=== PATIENT | female | born 2000 | race Caucasian/White ===

== ENCOUNTER 2018-06-19 13:16 | Emergency (ER) | payer OTHER ==
[2018-06-19 13:46] VITALS: BP 105/63
[2018-06-19] MEDS ORDERED: Ibuprofen TAB* 600 MG PO ONE (14:39)
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
== END 2018-06-19 15:26 | disposition home or self-care (01) ==
LOC: UCEAST 13:16
DX: S06.0X0A Concussion without loss of consciousness, initial encounter (principal); S46.811A Strain of other muscles, fascia and tendons at shoulder and upper arm level, right arm, initial encounter; V43.52XA Car driver injured in collision with other type car in traffic accident, initial encounter; Y92.410 Unspecified street and highway as the place of occurrence of the external cause
CPT/HCPCS: 70450; 99201; A9270-GY; G0463